=== PATIENT | female | born 1945 | race Caucasian/White ===

== ENCOUNTER → 2016-09-27 | Outpatient (CLI) | payer MEDICARE, OTHER ==
[~2016-09-27] MED LIST: AMLO1TAB PO; APIX5TAB PO; ATEN25TA PO; CHOL20002 PO; CITA40TA12 PO; DIAZ5TAB4 PO; HYDR12.53 PO; LOSA1TAB18 PO; LOSA25TA5 PO; OMNIPAQUE 350 MG/ML, 100ML BOTTLE ONE; PRIM50TA PO
== END | disposition home or self-care (01) ==
LOC: CFH 08:38
PROVIDERS: ATTEND Internal Medicine Cardiovascular Disease
DX: R22.43 Localized swelling, mass and lump, lower limb, bilateral (principal); Z86.711 Personal history of pulmonary embolism
CPT/HCPCS: 71275; 93970; Q9967

== ENCOUNTER 2017-03-27 11:38 | Day surgery (SDC) | payer MEDICARE, OTHER ==
[~2017-03-27 11:38] MED LIST changes: +AMLO-264 PO; -AMLO1TAB PO; -LOSA1TAB18 PO; +LOSA1TAB25 PO; -OMNIPAQUE 350 MG/ML, 100ML BOTTLE ONE
[2017-03-27] MEDS ORDERED: LIDOCAINE/PF 1%-EPI 1:200K, 30 ML ONE (12:15)
[2017-03-27] MEDS ORDERED: LIDOCAINE 1%-EPI 1:100K, 20ML SQ PRN (12:30)
== END 2017-03-27 14:46 | disposition home or self-care (01) ==
LOC: CACL 11:38
PROVIDERS: ATTEND Internal Medicine Cardiovascular Disease
DX: I48.0 Paroxysmal atrial fibrillation (principal); I10 Essential (primary) hypertension
CPT/HCPCS: 33282; C1764; J3490

== ENCOUNTER → 2017-12-12 | Outpatient (CLI) | payer MEDICARE, OTHER ==
[~2017-12-12] MED LIST changes: -CHOL20002 PO; +CHOL200052 PO; -LOSA25TA5 PO; +LOSA25TA6 PO
== END | disposition home or self-care (01) ==
LOC: CFH 09:14
PROVIDERS: ATTEND Nurse Practitioner Primary Care
DX: Z13.820 Encounter for screening for osteoporosis (principal); N95.8 Other specified menopausal and perimenopausal disorders
CPT/HCPCS: 77080

== ENCOUNTER 2018-06-05 10:56 | Outpatient (CLI) | payer MEDICARE, OTHER ==
[~2018-06-05 10:56] MED LIST changes: -AMLO2.5T5 PO; -ATOR40TA78 PO; -FLUO40CA2 PO; -METO-93 PO; -propranolol PO
[2018-06-05] MEDS ORDERED: APIX5TAB PO (11:31)
[2018-06-05] MEDS ORDERED: FLUO40CA2 PO (11:31)
[2018-06-05] MEDS ORDERED: ATOR40TA78 PO (11:31)
[2018-06-05] MEDS ORDERED: METO-93 PO (11:31)
[2018-06-05] MEDS ORDERED: propranolol PO (11:31)
[2018-06-05] MEDS ORDERED: AMLO2.5T5 PO (11:36)
== END 2018-06-05 23:59 | disposition home or self-care (01) ==
LOC: STAR 10:56
PROVIDERS: ATTEND Internal Medicine Cardiovascular Disease
DX: I48.0 Paroxysmal atrial fibrillation (principal)
CPT/HCPCS: 36415; 80053; 85025; 85610; 85730

== ENCOUNTER → 2018-06-05 | Outpatient (CLI) | payer MEDICARE, OTHER ==
[~2018-06-05] MED LIST changes: +AMLO2.5T5 PO; +ATOR40TA78 PO; +FLUO40CA2 PO; +HYDR12.517 PO; -HYDR12.53 PO; +LOSA25TA25 PO; -LOSA25TA6 PO; +METO-93 PO; +propranolol PO
== END | disposition home or self-care (01) ==
LOC: CFH 09:25
PROVIDERS: ATTEND Internal Medicine Cardiovascular Disease
DX: I48.0 Paroxysmal atrial fibrillation (principal); Z95.818 Presence of other cardiac implants and grafts
CPT/HCPCS: 71046; 75572

== ENCOUNTER 2018-06-11 06:09 | Observation (INO) | payer MEDICARE, OTHER ==
[2018-06-05 11:23] VITALS: BP 131/101
[2018-06-05 12:07] LABS: BASOPHILS # (AUTO) 0.05 x10^3/uL (0-0.1); BASOPHILS % (AUTO) 1 % (0-1); EOSINOPHILS # (AUTO) 0.06 x10^3/uL (0-0.4); EOSINOPHILS % (AUTO) 1 % (1-7); LYMPHOCYTES % (AUTO) 21 % (22-44); MD NO; MEAN CORPUSCULAR HEMOGLOBIN 33.3 pg (27.0-34.8); MEAN CORPUSCULAR HGB CONC 34.4 g/dL (32.4-35.8); MEAN CORPUSCULAR VOLUME 96.8 fL (80-100); MEAN PLATELET VOLUME 10.3 fL (7.4-10.4); MONOCYTES # (AUTO) 0.58 x10^3/uL (0.2-0.8); MONOCYTES % (AUTO) 8 % (2-9); NEUTROPHILS # (AUTO) 4.98 x10^3/uL (1.8-6.8); NEUTROPHILS % (AUTO) 69 % (42-75); PLATELET COUNT 219 x10^3/uL (130-400); RED BLOOD COUNT 4.22 x10^6/uL (3.82-5.3); RED CELL DISTRIBUTION WIDTH 12.9 % (9.6-15.2)
[2018-06-05 12:15] LABS: INTERNATIONAL NORMALIZED RATIO 1.1 (0.93-1.1); PROTHROMBIN TIME 11.5 Seconds (9.6-11.5)
[2018-06-05 12:19] LABS: ALBUMIN 3.6 g/dL (3.4-5.0); ANION GAP 5 mmol/L (5-15); CALCIUM 8.9 mg/dL (8.5-10.1); CHLORIDE 103 mmol/L (98-107)
[2018-06-05 12:23] LABS: ALANINE AMINOTRANSFERASE 33 U/L (12-78); ALKALINE PHOSPHATASE 108 U/L (45-117); BILIRUBIN,TOTAL 0.9 mg/dL (0.2-1.0); CREATININE 0.82 mg/dL (0.55-1.02); TOTAL PROTEIN 7.1 g/dL (6.4-8.2)
[~2018-06-11] VITALS: Ht 160 cm; Wt 79.5 kg
[~2018-06-11 06:09] MED LIST changes: +AMLO2.5T5 PO; +ATOR40TA78 PO; +FLUO40CA2 PO; +METO-93 PO; +propranolol PO
[2018-06-11] MEDS ORDERED: SODIUM CHLORIDE 0.9% 1,000 ML IV SCH ×2 (06:16→06:30)
[2018-06-11] MEDS ORDERED: MULT-658 PO (06:36)
[2018-06-11] MEDS ORDERED: LOSA100T14 PO (06:38)
[2018-06-11] MEDS ORDERED: HYDROCHLOROTH12.5 MG PO (06:38)
[2018-06-11] MEDS ORDERED: FENTANYL PF 250 MCG/5ML ONE (07:33)
[2018-06-11] MEDS ORDERED: PROPOFOL 50 ML ONE (07:33)
[2018-06-11] MEDS ORDERED: MIDAZOLAM 1 MG/ML, 2ML ONE (07:33)
[2018-06-11] MEDS ORDERED: PROTAMINE SULFATE 10 MG/ML, 5ML ONE (08:07)
[2018-06-11] MEDS ORDERED: LIDOCAINE 2%, 20ML ONE (08:07)
[2018-06-11] MEDS ORDERED: ISOPROTERENOL 0.2MG/ML, 5ML ONE (08:07)
[2018-06-11] MEDS ORDERED: PHENYLEPHRINE 10 MG/ML ONE (08:12)
[2018-06-11] MEDS ORDERED: DEXAMETHASONE 4 MG/ML, 1ML ONE (08:12)
[2018-06-11] MEDS ORDERED: ROCURONIUM 10 MG/ML,10ML ONE (08:12)
[2018-06-11] MEDS ORDERED: SUCCINYLCHOLINE 20 MG/ML, 10ML ONE (08:12)
[2018-06-11] MEDS ORDERED: ONDANSETRON 2MG/ML, 2ML ONE (08:12)
[2018-06-11] MEDS ORDERED: FENTANYL PF 100 MCG/2ML ONE (10:47)
[2018-06-11] MEDS ORDERED: APIXABAN 5 MG TABLET ONE (11:19)
[2018-06-11] MEDS ORDERED: OXYcodone 5 MG/5 ML ORAL.SOL UDC ONE (11:20)
[2018-06-11] MEDS: APIXABAN 5 MG TABLET PO SCH ×2 (11:22→20:39)
[2018-06-11] MEDS ORDERED: PROMETHAZINE 12.5 MG SUPP PR PRN (11:30)
[2018-06-11] MEDS ORDERED: MORPHINE SULFATE 4 MG/ML, 1ML IVPush PRN (11:30)
[2018-06-11] MEDS ORDERED: PROMETHAZINE 25 MG SUPP PR PRN (11:30)
[2018-06-11] MEDS ORDERED: AMLODIPINE 2.5 MG TABLET PO PRN (11:30)
[2018-06-11] MEDS ORDERED: hydrALAzine 20 MG/ML, 1ML IV PRN (11:30)
[2018-06-11] MEDS ORDERED: DIPHENHYDRAMINE 50 MG/ML, 1ML IVPush PRN (11:30)
[2018-06-11] MEDS ORDERED: MEPERIDINE/PF 25MG/0.5ML IVPush PRN (11:30)
[2018-06-11] MEDS ORDERED: PROMETHAZINE 25 MG/ML, 1ML IV PRN (11:30)
[2018-06-11] MEDS ORDERED: ONDANSETRON ODT 8 MG PO PRN (11:30)
[2018-06-11] MEDS ORDERED: ONDANSETRON 2MG/ML, 2ML IV PRN (11:30)
[2018-06-11] MEDS ORDERED: ACETAMINOPHEN 325 MG TABLET PO PRN (11:30)
[2018-06-11] MEDS ORDERED: MIDAZOLAM 1 MG/ML, 2ML IV PRN (11:30)
[2018-06-11] MEDS ORDERED: EPHEDRINE 50 MG/ML, 1ML IM PRN (11:30)
[2018-06-11] MEDS ORDERED: OXYcodone 5 MG/5 ML ORAL.SOL UDC PO PRN (11:30)
[2018-06-11] MEDS ORDERED: FENTANYL PF 100 MCG/2ML IV PRN (11:30)
[2018-06-11] MEDS ORDERED: EPHEDRINE 50 MG/ML, 1ML IVPush PRN (11:30)
[2018-06-11] MEDS ORDERED: METOPROLOL 1 MG/ML, 5ML IV PRN (11:30)
[2018-06-11 12:27] VITALS: BP 92/59
[2018-06-11 15:05] VITALS: BP 94/56
[2018-06-11] MEDS: ACETAMINOPHEN 325 MG TABLET PO PRN ×2 (15:22→20:56)
[2018-06-11 19:25] VITALS: BP 101/60
[2018-06-11] MEDS ORDERED: ATORVASTATIN 40 MG TABLET PO SCH (21:00)
[2018-06-12 00:30] VITALS: BP 93/53
[2018-06-12 08:23] VITALS: BP 126/75
[2018-06-12] MEDS: APIXABAN 5 MG TABLET PO SCH (08:29)
[2018-06-12] MEDS ORDERED: LOSARTAN 50MG TABLET PO SCH ×3 (09:00→21:00)
[2018-06-12] MEDS ORDERED: METOPROLOL SUCCINATE 50 MG TAB.ER.24H PO SCH (09:00)
[2018-06-12] MEDS ORDERED: CHOLECALCIFEROL 1,000 UNIT TABLET PO SCH (09:00)
[2018-06-12] MEDS ORDERED: HYDROCHLOROTHIAZIDE 12.5 MG CAPSULE PO SCH (09:00)
[2018-06-12] MEDS ORDERED: MULTIVITAMIN 1 TABLET PO SCH (09:00)
== END 2018-06-12 11:57 | disposition home or self-care (01) ==
LOC: CACL 06:09 → ORIP 11:01 → 5SO 11:44 → DCLOUNGE 06-12 11:40
PROVIDERS: ADMIT Internal Medicine Cardiovascular Disease; ATTEND Internal Medicine Cardiovascular Disease
DX: I48.91 Unspecified atrial fibrillation (principal); I48.92 Unspecified atrial flutter
CPT/HCPCS: 85347; 93306; 93312; 93321; 93325; 93623; 93655; 93656; 93662; C1730; C1732; C1759; C1766; C1894; G0378; J0330; J1100; J2250; J2370; J2405; J2704; J3010; J3490; 36415; 80053; 85025; 85610; 85730; J2720